=== PATIENT | male | born 1970 | race Caucasian/White ===

== ENCOUNTER 2019-01-07 11:27 | Emergency (ER) | payer OTHER ==
[~2019-01-07] VITALS: Ht 185.4 cm; Wt 120.5 kg
[2019-01-07 11:32] VITALS: Ht 185.4 cm; Wt 120.5 kg
[2019-01-07] MEDS ORDERED: EFFEXOR100 MG PO (11:35)
[2019-01-07] MEDS ORDERED: COZAAR50 MG PO (11:35)
[2019-01-07] MEDS ORDERED: [UNRECOGNIZED DRUG - OTHER] (11:36)
[2019-01-07] MEDS ORDERED: DULCOLAX10 MG/SUPP RC (11:37)
[2019-01-07] MEDS ORDERED: CLARITIN 10 MG10 MG PO (11:37)
[2019-01-07] MEDS ORDERED: ANABUSE (11:39)
[2019-01-07 12:05] LABS: BASOPHILS 0.4 % (0-2); EOSINOPHILS 2.4 % (0-7); HEMATOCRIT 46.4 % (42.0-54.0); HEMOGLOBIN 17.3 g/dL (13.5-17.5); IMMATURE GRANULOCYTES 0.2 % (0-5); LYMPHOCYTES 20.5 % (15-50); MCH 33.5 pg (26.0-34.0); MCHC 37.3 g/dL (31.0-37.0); MCV 89.9 fL (80.0-100.0); MEAN PLATELET VOLUME 9.3 fL (7.4-10.4); MONOCYTES 7.2 % (2-11); NEUTROPHILS 69.3 % (40-80); PLATELET COUNT 210 10x3/uL (130-400); RBC 5.16 10x6/uL (4.20-6.10); RDW 12.8 % (11.5-14.5); WBC 12.1 10x3/uL (4.8-10.8)
[2019-01-07 12:21] LABS: ALBUMIN 3.5 g/dL (3.4-5.0); ALKALINE PHOSPHATASE 75 U/L (46-116); ALT (SGPT) 101 U/L (10-68); BILIRUBIN - TOTAL 0.45 mg/dL (0.2-1.3); CALC OSMOLALITY 273 mosm/kg (275-300); CALCIUM 8.5 mg/dL (8.5-10.1); CARBON DIOXIDE 28.2 mmol/L (21.0-32.0); CHLORIDE - SERUM 100 mmol/L (98-107); GLUCOSE 100 mg/dL (74-106); POTASSIUM - SERUM 3.6 mmol/L (3.5-5.1); PROTEIN - SERUM 7.5 g/dL (6.4-8.2); SODIUM 136 mmol/L (136-145); UREA NITROGEN 19 mg/dL (7-18); eGFR NON AFRICAN AMERICAN 85 mL/min (90-120)
[2019-01-07 12:40] LABS: AMYLASE - SERUM 59 U/L (25-115); LIPASE 151 U/L (73-393)
[2019-01-07 12:41] LABS: CKMB 2.3 U/L (0.0-3.6); CREATINE KINASE 2025 UL (21-232); TROPONIN-I < 0.017 ng/mL (0.000-0.060)
[2019-01-07 13:36] LABS: APPEARANCE CLEAR (CLEAR); BILIRUBIN NEGATIVE (NEGATIVE); COLOR YELLOW (YELLOW); GLUCOSE NEGATIVE (NEGATIVE); KETONE NEGATIVE (NEGATIVE); NITRITE NEGATIVE (NEGATIVE); PROTEIN NEGATIVE (NEGATIVE); SPECIFIC GRAVITY 1.005 (1.005-1.020); UROBILINOGEN NORMAL (NORMAL)
[2019-01-07] MEDS ORDERED: ZOFRAN8 MG PO (14:06)
[2019-01-07 15:10] VITALS: BP 132/64
== END 2019-01-07 15:12 | disposition home or self-care (01) ==
LOC: D.ER 11:27
PROVIDERS: Family Medicine
DX: M62.82 Rhabdomyolysis (principal); T67.5XXA Heat exhaustion, unspecified, initial encounter; Y93.9 Activity, unspecified